=== PATIENT | female | born 1990 | race Hispanic/Latino ===

== ENCOUNTER 2019-10-07 17:32 | Emergency (ER) | payer OTHER | END 2019-10-07 19:55 | disposition home or self-care (01) | LOC: EDH 17:32 | DX: S92.812A Other fracture of left foot, initial encounter for closed fracture (principal); X58.XXXA Exposure to other specified factors, initial encounter; Y93.89 Activity, other specified; Y92.098 Other place in other non-institutional residence as the place of occurrence of the external cause; Y99.8 Other external cause status | CPT/HCPCS: 29515; 73630 ==

== ENCOUNTER 2023-10-06 18:11 | Emergency (ER) | payer MEDICAID, OTHER ==
[~2023-10-06] VITALS: Ht 154.9 cm; Wt 68.0 kg
[2023-10-06] MEDS ORDERED: 0.9%NACL 1000ML 1,000 ML IV SCH (18:30)
[2023-10-06 18:34] LABS: HEMATOCRIT 38.5 % (36-48); MEAN CORPUSCULAR HEMOGLOBIN 29.3 pg (27.0-33.0); MEAN CORPUSCULAR HGB CONC 33.8 g/dL (32.0-36.0); MEAN CORPUSCULAR VOLUME 86.9 fL (79-99); RED BLOOD CELL COUNT(AUTO) 4.43 MIL/uL (4.00-5.50); RED CELL DISTRIBUTION WIDTH 12.2 % (11.0-15.5)
[2023-10-06 18:46] LABS: CREATININE 0.6 mg/dL (0.5-1.5); POTASSIUM 3.5 mmol/L (3.5-5.1)
[2023-10-06] MEDS ORDERED: MORPHINE 4 MG SYG IVP ONE (20:00)
[2023-10-06] MEDS ORDERED: ONDANSETRON 4MG INJ IVP ONE (20:00)
[2023-10-06 20:40] LABS: APPEARANCE,URINE CLEAR (CLEAR); BILIRUBIN,URINE NEGATIVE (NEGATIVE); COLOR,URINE COLORLESS (YELLOW); GLUCOSE, URINE (UA) NEGATIVE (NEGATIVE); KETONES,URINE NEGATIVE (NEGATIVE); LEUKOCYTE ESTERASE ,URINE 75 Leu/uL (NEGATIVE); NITRATE,URINE NEGATIVE (NEGATIVE); OCCULT BLOOD,URINE SMALL (NEGATIVE); PH,URINE 7.5 (5.0-8.0); PROTEIN,URINE NEGATIVE (NEGATIVE); UROBILINOGEN,URINE 0.2 mg/dL (0.2-1.0)
[2023-10-06 20:42] LABS: ADD UA MICROSCOPIC YES
[2023-10-06 20:43] LABS: BACTERIA,URINE RARE /HPF (None Seen); RBC,URINE 0-1 /HPF (0-1); WBC,URINE 0-1 /HPF (0-1)
[2023-10-06] MEDS ORDERED: CEFTRIAXONE 1G VIAL IVPB ONE (21:00)
[2023-10-06] MEDS ORDERED: ONDA4TAB10 PO (21:12)
[2023-10-06] MEDS ORDERED: IBUP-2070 PO (21:12)
[2023-10-06] MEDS ORDERED: CEPH500T PO (21:12)
[2023-10-06 21:17] VITALS: BP 132/76; PULSE 92; RESP 18; O2SAT 98
== END 2023-10-06 21:55 | disposition home or self-care (01) ==
LOC: EDH 18:11
DX: N39.0 Urinary tract infection, site not specified (principal); N13.30 Unspecified hydronephrosis
CPT/HCPCS: 99285; 74176; 96374; 96361; 96375; 80048; 83690; 85027; 87077; 87088; 87186; 81001; 81025; 36415; J0696; J2405; J2270